=== PATIENT | male | born 1960 | race Caucasian/White ===

== ENCOUNTER 2017-05-02 10:30 | Day surgery (SDC) | payer BC ==
[2017-05-02] VITALS (8 sets, daily range): BP systolic 105–136; BP diastolic 67–81
[~2017-05-02] VITALS: Ht 177.8 cm; Wt 86.2 kg
--- NOTE | 2017-05-02 10:41 | Pre-Procedure Note/Attestation ---
Pre-Procedure Note/Attestation Complete Prior to Procedure Planned Procedure: not applicable Procedure Narrative: esophagogastroduodenoscopy and colonoscopy Indications for Procedure Pre-Operative Diagnosis: GERD, screening colon Attestation I attest that I discussed the nature of the procedure; its benefits; risks and complications; and alternatives (and the risks and benefits of such alternatives ), prior to the procedure, with the patient (or the patient's legal volunteer patient representative). I attest that, if there was a reasonable possibility of needing a blood transfusion, the patient (or the patient's legal volunteer patient representative) was given the [facility] standardized written summary, pursuant to the [place] Blood Safety Act ([place] Health and Safety Code # 1645, as amended). I attest that I re-evaluated the patient just prior to the surgery and that there has been no change in the patient's H&P, except as documented below: NICOLE QUEZADA May 02, 2017 10:41
[2017-05-02] MEDS ORDERED: FINASTERIDE5 MG ORAL (11:25)
--- NOTE | 2017-05-02 11:44 | Anethesia Preoperative Eval ---
Anesthesia Pre-op PMH/ROS General Date of Evaluation: May 02, 2017 Time of Evaluation: 12:00 Anesthesiologist: Morris ASA Score: ASA 2 Mallampati Score Class I : Soft palate, uvula, fauces, pillars visible Class II: Soft palate, uvula, fauces visible Class III: Soft palate, base of uvula visible Class IV: Only hard plate visible Mallampati Classification: Class II Surgeon: Kat Surgical Procedure: EGD/Colonoscopy Anesthesia History: none Family History: no anesthesia problems Allergies: Uncoded Allergies: lactated ringers (Adverse Reaction, Intermediate, agitation, anxiety , ) Medications: see eMAR Past Medical History Cardiovascular: Reports: CAD - high lipids Pulmonary: Denies: asthma, COPD, ANTWON, other Gastrointestinal/Genitourinary: Reports: GERD, other - bloating, ulcers Neurologic/Psychiatric: Denies: dementia, CVA, depression/anxiety, TIA, other Endocrine: Denies: DM, hypothyroidism, steroids, other HEENT: Denies: cataract (L), glaucoma, LITTLE TRAVERSE (L), LITTLE TRAVERSE (R), other Hematology/Immune: Reports: anemia Musculoskeletal/Integumentary: Denies: OA, RA, DJD, DDD, edema, other PSxH Narrative: tonsillectomy, parathyroidectomy 2014 Anesthesia Pre-op Phys. Exam Physician Exam Last Vital Signs Date Time Temp Pulse Resp B/P (MAP) Pulse Ox O2 Delivery O2 Flow Rate FiO2 05/02/17 11:23 97.8 60 18 105/74 95 Room Air Constitutional: NAD Neurologic: CN 2-12 intact Cardiovascular: RRR Respiratory: CTA Gastrointestinal: S/NT/ND Airway Exam Mallampati Score: Class II MO: full ROM: full Teeth: intact - top center cap Anesthesia Pre-op A/P Labs chart reviewed Studies Pre-op Studies: EKG - NSB with 1 degree AV blcok Risk Assessment & Plan Assessment: A&Ox4 Plan: MAC Status Change Before Surgery: No Pre-Antibiotics Given Within 1 Hr of Incision: No - none per surgeon Jany Caceres CRNA May 02, 2017 11:44
--- NOTE | 2017-05-02 11:45 | Immediate Post-Op Evaluation ---
Immediate Post-Op Evalulation Immediate Post-Op Evalulation Procedure: EGD/Colon Date of Evaluation: May 02, 2017 Time of Evaluation: 12:43 IV Fluids: NSS 500ml Blood Products: 0 Estimated Blood Loss: 0 Urinary Output: 0 Blood Pressure Systolic: 117 Blood Pressure Diastolic: 69 Pulse Rate: 64 Respiratory Rate: 22 O2 Sat by Pulse Oximetry: 98 Temperature (Fahrenheit): 98.4 Pain Score (1-10): 0 Nausea: No Vomiting: No Complications none at this time Patient Status: awake, reacts Hydration Status: adequate Given Within 1 Hr of Incision: Jany Keating CRNA May 02, 2017 11:45
--- NOTE | 2017-05-02 11:45 | 48 Hour Post Anesthesia Eval ---
Post Anesthesia Evaluation Procedure: EGD/Colon Date of Evaluation: May 02, 2017 Time of Evaluation: 13:00 Blood Pressure Systolic: 108 0: 65 Pulse Rate: 62 Respiratory Rate: 20 Temperature (Fahrenheit): 98.4 O2 Sat by Pulse Oximetry: 99 Airway: patent Nausea: No Vomiting: No Hydration Status: adequate Mental Status/LOC: patient returned to baseline Post-Anesthesia Complications: none Follow-up care needed: patient intructions given Jany Caceres CRNA May 02, 2017 11:45
[2017-05-02] MEDS ORDERED: Propofol 200mg/20ml IV ONE (12:00)
[2017-05-02] MEDS ORDERED: Midazolam 2mg/2ml Inj ONE (12:00)
--- NOTE | 2017-05-02 12:08 | Short Stay Surgery H&P ---
History of Present Illness History of Present Illness Chief Complaint screening colon, GERD HPI Alexis Valiente is a 56 year old male who was admitted on for Gastric And Colon Polyps Patient History Allergies: Uncoded Allergies: lactated ringers (Adverse Reaction, Intermediate, agitation, anxiety , ) PAST MEDICAL HISTORY: (1) GERD (gastroesophageal reflux disease) Past Surgeries: Social History: Medication History Scheduled Finasteride (Finasteride), 5 MG ORAL DAILY, (Reported) Review of Systems Cardiovascular: Reports: no symptoms Respiratory: Reports: no symptoms Skeletal: Reports: no symptoms Gastrointestinal: Reports: gastro esophageal reflux disease Genitourinary: Reports: no symptoms Neurologic: Reports: no symptoms Endocrine: Reports: no symptoms Hematologic: Reports: no symptoms Physical Exam Vital Signs Last Vital Signs Date Time Temp Pulse Resp B/P (MAP) Pulse Ox O2 Delivery O2 Flow Rate FiO2 05/02/17 11:23 97.8 60 18 105/74 95 Room Air Skin: normal HENT: normal Heart: normal Lungs: normal Abdomen: normal Extremities: normal Plan Plan of Care esophagogastroduodenoscopy and colonoscopy Final Diagnosis: Attestation Are the patient's medical conditions optimized for surgery? Attestation Response: yes NICOLE QUEZADA May 02, 2017 12:08
--- NOTE | 2017-05-02 12:35 | Endoscopy Procedure Note ---
Endoscopy Procedure Note Indication for Procedure: screening colon, GERD Procedures Performed: EGD, colonoscopy Operative Findings/Diagnosis: gasritis, one colon polyp Specimen: yes Pt Tolerated Procedure Well: Yes Estimated Blood Loss: none Anesthesiologist: ade Anesthesia: MAC Implant(s) used?: No 50 yrs or older w/o bx or poly: No 10yrs. F/U not recommended: Yes If not recommended, why?: Above average risk 10 yrs. F/U needed: Yes 18 years or older w/prev. colo: No NICOLE QUEZADA May 02, 2017 12:35
--- NOTE | 2017-05-02 21:15 | Procedure Note ---
DATE OF PROCEDURE: 05/02/2017 SURGEON: Tyrese Stephens M.D. PROCEDURE: Colonoscopy with snare polypectomy and endoscopy with biopsy. ANESTHESIA: Per FILIPE Caceres. INSTRUMENT: Olympus adult flexible endoscope and colonoscope. INDICATION: 1. Screening colonoscopy evaluation. 2. Chronic acid reflux disease. The procedure, risks, benefits, and possible consequences, including hemorrhage, aspiration, perforation and infection, and alternative treatments, were explained to the patient/legal guardian by Dr. Tyrese Stephens and the patient/legal guardian understood and accepted these risks. DESCRIPTION OF PROCEDURE: After informed consent was obtained and the patient was adequately sedated, first Olympus upper endoscope was advanced from mouth to the second portion of the duodenum and retroflexion was performed in the stomach. The patient had some findings in the duodenal bulb, suspicious for Kasia's gland hyperplasia, which was biopsied. In the stomach, there was diffuse gastritis. Random biopsy from antrum was obtained to rule out H. pylori infection. The rest of upper endoscopic examination was grossly within normal limits. At this time, the upper endoscope was retrieved. The patient was turned over for colonoscopy. First, a rectal examination was performed, which was positive for internal hemorrhoids. Then, the scope was advanced from the rectum into the cecum, then subsequently terminal ileum. Quality of prep was very good. The patient had one polyp in the ascending colon, measured roughly about 5 mm, removed with the snare polypectomy technique. This polyp was sessile. The rest of the exam was normal. Retroflexion of rectum showed evidence of large internal hemorrhoids. SUMMARY OF FINDINGS: 1. Gastritis, status post biopsy. 2. Kasia's gland hyperplasia, status post biopsy. 3. One colonic polyp removed. See above for details. 4. Internal hemorrhoids. RECOMMENDATIONS: 1. Follow biopsy results and treat accordingly. 2. Recommended repeat colonoscopy in 5 years. Tyrese Stephens M.D. DR: PATTY JOB#: [id number] CC:
--- NOTE | 2017-05-08 18:02 | Cardiology Report ---
APPROVED REPORT EKG Measurement Heart [id number] Sinus bradycardia with 1st degree AV block Otherwise normal ECG
== END 2017-05-02 13:40 | disposition home or self-care (01) ==
LOC: GAS 10:30
DX: Z12.11 Encounter for screening for malignant neoplasm of colon (principal); K21.9 Gastro-esophageal reflux disease without esophagitis; K63.5 Polyp of colon; K29.50 Unspecified chronic gastritis without bleeding; K64.8 Other hemorrhoids; I25.10 Atherosclerotic heart disease of native coronary artery without angina pectoris; I44.0 Atrioventricular block, first degree
CPT/HCPCS: 43239; 45380; 93005; J2250; J2704; 94003; 94150